=== PATIENT | female | born 1975 | race Caucasian/White ===

== ENCOUNTER 2025-01-04 13:06 | Emergency (ER) | payer SELFPAY ==
[~2025-01-04] VITALS: Ht 162.6 cm; Wt 73.0 kg
[2025-01-04 13:11] VITALS: TEMP 36.7; O2SAT 98
[2025-01-04] MEDS: ONDANSETRON 4MG ODT PO ONE (14:33)
[2025-01-04] MEDS: HYDROCODONE/ACETAMINOPHEN 5/325MG TABLET PO ONE (14:33)
[2025-01-04] MEDS ORDERED: LIDO-53 TP (16:01)
[2025-01-04] MEDS ORDERED: METH-653 MT (16:01)
[2025-01-04] MEDS ORDERED: IBUP-2028 MT (16:01)
[2025-01-04] MEDS ORDERED: TOPUD PO (16:38)
[2025-01-04 16:45] VITALS: BP 121/81; PULSE 62; RESP 18; O2SAT 98
== END 2025-01-04 16:46 | disposition home or self-care (01) ==
LOC: ER 13:06
DX: S13.4XXA Sprain of ligaments of cervical spine, initial encounter (principal); Z79.899 Other long term (current) drug therapy; X58.XXXA Exposure to other specified factors, initial encounter; Y93.89 Activity, other specified; Y92.89 Other specified places as the place of occurrence of the external cause; Y99.8 Other external cause status
CPT/HCPCS: 99284; 70450; 71101; 72100; 73562; 70486; 72125; Q0162